=== PATIENT | male | born 1930 | race Caucasian/White ===

== ENCOUNTER → 2016-08-28 | Outpatient (CLI) | payer MEDICARE ==
[~2016-08-28] MED LIST: ALLO100T PO; ASCO25TA PO; COLC1TAB5 PO; COUM1TAB17 PO; DIGO0.12 PO; EYELEA; LASI40TA PO; LISI-538 PO; LUCENTIS; META28.35 PO; PRESCAP PO; [UNRECOGNIZED DRUG - OTHER] PO
--- NOTE | 2016-08-28 11:58 | REP ---
Clinical: Cough. Technique: PA and lateral. Comparison: 09/15/2014. Findings: Mediastinum and cardiac silhouette are stable. Pacemaker in satisfactory position. Lung otto demonstrate chronic-appearing interstitial changes without obvious acute consolidation, effusion, or pneumothorax. A 6 mm rounded nodule in the left base likely represents asymmetric nipple shadow and less likely actual pulmonary nodule. Skeletal structures demonstrate osteopenia and age-related degenerative changes. Impression: 1. Chronic-appearing interstitial changes without obvious acute process. 2. A 6 mm density in the left lung base likely represents asymmetric nipple shadow and less likely pulmonary nodule. Consider repeat evaluation with nipple markers and if necessary chest CT may be considered.
== END ==
LOC: M CLY 11:11
PROVIDERS: ATTEND Family Medicine
DX: R91.8 Other nonspecific abnormal finding of lung field (principal)
CPT/HCPCS: 71020; 85610; G0463

== ENCOUNTER → 2016-09-03 | Outpatient (CLI) | payer MEDICARE ==
--- NOTE | 2016-09-03 11:40 | REP ---
Clinical: Pulmonary nodule. Technique: PA and lateral with nipple markers. Comparison: 08/28/2016. Findings: Mediastinum and cardiac silhouette are stable. Lung otto demonstrate chronic changes and in the previously suspected nodule versus asymmetric nipple shadow does indeed correspond to nipple. No consolidation, effusion or pneumothorax. Skeletal structures demonstrate stable degenerative changes. Impression: Previously questioned nodule corresponds to normal nipple shadow. Chronic changes without acute cardiopulmonary process.
== END ==
LOC: M CLY 10:39
PROVIDERS: ATTEND Family Medicine
DX: R91.8 Other nonspecific abnormal finding of lung field (principal)
CPT/HCPCS: 71020; G0463

== ENCOUNTER → 2017-09-02 | Outpatient (REF) | payer MEDICARE ==
[2017-09-02 17:15] LABS: ALBUMIN/GLOBULIN RATIO 1.14 (1.00-1.93); ALKALINE PHOSPHATASE 102 U/L (45-117); ALT/SGPT 47 U/L (12-78); ANION GAP 5 MEQ/L (8-16); AST/SGOT 28 U/L (7-37); BILIRUBIN,TOTAL 0.5 MG/DL (0.2-1.0); BLOOD UREA NITROGEN 24 MG/DL (7-18); CALCIUM LEVEL 8.5 MG/DL (8.8-10.2); CARBON DIOXIDE LEVEL 30 MEQ/L (21-32); CHLORIDE LEVEL 107 MEQ/L (98-107); CREATININE FOR GFR 1.43 MG/DL (0.70-1.30); GLOMERULAR FILTRATION RATE 49.6 (>35); GLUCOSE, FASTING 81 MG/DL (70-100); POTASSIUM SERUM 4.4 MEQ/L (3.5-5.1); PROSTATIC SPECIFIC AG MONITOR < 0.01 NG/ML (< 4.0); SODIUM LEVEL 142 MEQ/L (136-145); TOTAL PROTEIN 7.5 GM/DL (6.4-8.2)
== END ==
LOC: M SFHCCLAY 11:14
DX: Z00.01 Encounter for general adult medical examination with abnormal findings (principal); I48.2 Chronic atrial fibrillation; Z95.0 Presence of cardiac pacemaker; Z85.46 Personal history of malignant neoplasm of prostate
CPT/HCPCS: 80162